=== PATIENT | male | born 1980 | race Caucasian/White ===

== ENCOUNTER 2017-01-17 18:52 | Emergency (ER) | payer SELFPAY ==
[2017-01-17 18:57] VITALS: BP 142/78; BMI 19.8
--- NOTE | 2017-01-17 22:55 | DR.GENAD ---
HPI - PCP Primary Care Physician: nfd - Complaint/Symptoms Chief Complaint Doctors Comments: back pain Chief Complaint:: patient stated he fell in his yard and landed on his back. he stated lower back pain causing him to miss work today - Source History Provided: Patient - Mode of Arrival Mode of Arrival: Ambulatory - Timing Onset of Chief Complaint: 01/16/17 Came on: Gradually - Duration Duration: Since Onset - Severity Severity: Moderate PMH - PMH Past Medical History: No Past Medical History: Seizures Past Surgical History: Yes Surgical History: Ortho Surgery - Family History History of Family Medical Conditions: Yes Family Medical History: Cancer - Social History Does patient currently use any type of tobacco product: Yes Have you used tobacco products in the last 12 months: Yes Type of Tobacco Use: Cigarettes How many years tobacco product used: 15 Does any household member use tobacco: No Alcohol Use: None Do you use any recreational Drugs:: No Lives With: Family Lives Where: Home - infectious screening In the last 2 months have you had wt loss of >10#?: NO Have you had fever, night sweats or hemotysis?: No Have you traveled outside the country in the last 6 months?: No Isolation: Standard ROS - Review of Systems Constitutional: No Symptoms Reported Eyes: No Symptoms Reported ENTM: No Symptoms Reported Respiratoy: No Symptoms Reported Cardiovascular: No Symptoms Reported Gastrointestinal/Abdominal: No Symptoms Reported Genitourinary: No Symptoms Reported Neurological: No Symptoms Reported Musculoskeletal: No Symptoms Reported, Back Pain, Back Integumentary: No Symptoms Reported Hematologic/Lymphatic: No Symptoms Reported Psychiatric: No Symptoms Reported All Other Systems: Reviewed and Negative PE - Vital Signs Vitals: Temperature 98.9 F Pulse Rate 60 Respiratory Rate 16 Blood Pressure 142/78 O2 Sat by Pulse Oximetry 100 - General Limitations: No Limitations - ENT Throat Exam: Normal Inspection - Neck Neck Exam: Normal Inspection, Full ROM - Chest Chest Inspection: Normal Inspection - Respiratory Respiratory Exam: Normal Lung Sounds Bilat - Cardiovascular Cardiovascular Exam: Regular Rate, Normal Rhythm, Normal Heart Sounds - Abdominal Exam Abdominal Exam: Normal Inspection, Normal Bowel Sounds, Soft - Back Back Exam: Normal Inspection, Tenderness - Neurologic Neurological Exam: Normal Gait - Psychiatric Psychiatric Exam: Normal Affect - Skin Skin Exam: Warm, Dry, Intact, Normal Color - Diagnosis Discharge Problem: Back contusion, Fall - Discharge Plan Disposition: HOME, SELF-CARE Condition: Stable Prescriptions: Cyclobenzaprine HCl [FLEXERIL 10 MG *] 10 mg PO BID #20 tab Ibuprofen [Motrin Tab 800 mg] 800 mg PO Q8H #30 tab - Follow ups/Referrals Follow ups/Referrals: [facility],None [Primary Care Provider] - 3 days - Instructions Instructions: Lumbosacral Strain
[2017-01-17] MEDS ORDERED: TORADOL 60 MG VIAL IM ONE (22:59)
[2017-01-17] MEDS ORDERED: NORFLEX INJ IM ONE (23:00)
[2017-01-17] MEDS ORDERED: NORFLEX INJ ONE (23:45)
[2017-01-17] MEDS ORDERED: TORADOL 60 MG VIAL ONE (23:45)
== END 2017-01-18 00:04 | disposition home or self-care (01) ==
LOC: ER 19:01
DX: S30.0XXA Contusion of lower back and pelvis, initial encounter (principal); W19.XXXA Unspecified fall, initial encounter; Y92.096 Garden or yard of other non-institutional residence as the place of occurrence of the external cause
CPT/HCPCS: 96372; 99282; J1885; J2360